=== PATIENT | female | born 1995 | race Caucasian/White ===

== ENCOUNTER → 2019-05-16 | Outpatient (REF) | payer BC | LOC: M LAB LCGH 12:37 | PROVIDERS: ATTEND Obstetrics & Gynecology | DX: Z12.4 Encounter for screening for malignant neoplasm of cervix (principal); R87.610 Atypical squamous cells of undetermined significance on cytologic smear of cervix (ASC-US) | CPT/HCPCS: 87624; G0123 ==

== ENCOUNTER → 2022-07-21 | Outpatient (CLI) | payer MEDICAID ==
[2022-07-21 15:34] LABS: HEMATOCRIT 41.4 % (36.0-47.0); HEMOGLOBIN 14.1 g/dl (12.0-15.5); MEAN CORPUSCULAR HEMOGLOBIN 30.3 pg (27.0-33.0); MEAN CORPUSCULAR HGB CONC 34.1 g/dl (32.0-36.5); MEAN CORPUSCULAR VOLUME 88.8 fl (80.0-96.0); PLATELET COUNT, AUTOMATED 277 10^3/uL (150-450); RED BLOOD COUNT 4.66 10^6/uL (4.00-5.40); WHITE BLOOD COUNT 14.4 10^3/uL (4.0-10.0)
[2022-07-21 16:33] LABS: HIV 1&2 SCREEN CENTAUR NEGATIVE (NEGATIVE)
[2022-07-21 17:15] LABS: GC DNA AMPLIFICATION NEGATIVE (NEGATIVE)
== END ==
LOC: M PLALAB 13:54
PROVIDERS: ATTEND Advanced Practice Midwife
DX: Z34.82 Encounter for supervision of other normal pregnancy, second trimester (principal)

== ENCOUNTER → 2022-08-18 | Outpatient (CLI) | payer MEDICAID ==
[2022-08-18 17:30] LABS: HEMATOCRIT 38.7 % (36.0-47.0); MEAN CORPUSCULAR HEMOGLOBIN 30.5 pg (27.0-33.0); MEAN CORPUSCULAR HGB CONC 33.6 g/dl (32.0-36.5); MEAN CORPUSCULAR VOLUME 90.8 fl (80.0-96.0); PLATELET COUNT, AUTOMATED 259 10^3/uL (150-450); RED BLOOD COUNT 4.26 10^6/uL (4.00-5.40); WHITE BLOOD COUNT 15.7 10^3/uL (4.0-10.0)
[2022-08-18 18:18] LABS: HEMOGLOBIN A1c 7.6 % (4.0-6.0)
[2022-08-18 18:53] LABS: HIV 1&2 SCREEN CENTAUR NEGATIVE (NEGATIVE)
[2022-08-18 19:35] LABS: GC DNA AMPLIFICATION NEGATIVE (NEGATIVE)
== END ==
LOC: M PLALAB 15:46
PROVIDERS: ATTEND Advanced Practice Midwife
DX: Z34.01 Encounter for supervision of normal first pregnancy, first trimester (principal); Z36.89 Encounter for other specified antenatal screening

== ENCOUNTER → 2022-08-19 | Outpatient (CLI) | payer MEDICAID ==
[2022-08-19 16:26] LABS: ALBUMIN 3.1 G/DL (3.2-5.2); ALKALINE PHOSPHATASE 69 U/L (46-116); ALT/SGPT 10 U/L (7.0-40); AST/SGOT 13 U/L (<34); BLOOD UREA NITROGEN 9 MG/DL (9-23); CALCIUM LEVEL 9.6 MG/DL (8.5-10.1); CARBON DIOXIDE LEVEL 24 MMOL/L (20-31); CHLORIDE LEVEL 103 MMOL/L (98-107); CREATININE FOR GFR 0.63 MG/DL (0.55-1.30); GLOMERULAR FILTRATION RATE > 60.0 (>60); GLUCOSE CHALLENGE TEST 1 HOUR 276 MG/DL (LESS THAN 140); GLUCOSE, FASTING 276 MG/DL (60-100); POTASSIUM SERUM 3.9 MMOL/L (3.5-5.1); SODIUM LEVEL 134 MMOL/L (136-145)
[2022-08-19 16:38] LABS: CREATININE,RANDOM URINE 90.4 MG/DL
[2022-08-19 19:02] LABS: BILIRUBIN,TOTAL 0.3 MG/DL (0.3-1.2); TOTAL PROTEIN 6.5 G/DL (5.7-8.2)
== END ==
LOC: M PLALAB 12:05
PROVIDERS: ATTEND Obstetrics & Gynecology
DX: Z34.92 Encounter for supervision of normal pregnancy, unspecified, second trimester (principal); Z86.39 Personal history of other endocrine, nutritional and metabolic disease

== ENCOUNTER → 2022-09-18 | Outpatient (CLI) | payer MEDICAID, OTHER ==
[2022-09-18 14:43] LABS: HEMOGLOBIN A1c 6.9 % (4.0-6.0)
== END ==
LOC: M PLALAB 11:53
PROVIDERS: ATTEND Advanced Practice Midwife
DX: O24.111 Pre-existing type 2 diabetes mellitus, in pregnancy, first trimester (principal); E11.9 Type 2 diabetes mellitus without complications; Z3A.00 Weeks of gestation of pregnancy not specified

== ENCOUNTER → 2022-09-28 | Outpatient (CLI) | payer MEDICAID, OTHER | LOC: M WHC 07:50 | PROVIDERS: ATTEND Obstetrics & Gynecology | DX: O32.1XX0 Maternal care for breech presentation, not applicable or unspecified (principal); Z36.89 Encounter for other specified antenatal screening; Z3A.21 21 weeks gestation of pregnancy ==

== ENCOUNTER → 2022-10-29 | Outpatient (CLI) | payer OTHER | LOC: M WHC 14:17 | PROVIDERS: ATTEND Obstetrics & Gynecology | DX: O24.112 Pre-existing type 2 diabetes mellitus, in pregnancy, second trimester (principal); Z3A.26 26 weeks gestation of pregnancy ==

== ENCOUNTER → 2022-11-13 | Outpatient (CLI) | payer MEDICARE, MEDICAID ==
[2022-11-13 10:51] LABS: HEMOGLOBIN 11.9 g/dl (12.0-15.5); MEAN CORPUSCULAR HEMOGLOBIN 31.2 pg (27.0-33.0); MEAN CORPUSCULAR HGB CONC 33.1 g/dl (32.0-36.5); MEAN CORPUSCULAR VOLUME 94.5 fl (80.0-96.0); PLATELET COUNT, AUTOMATED 223 10^3/uL (150-450); RED BLOOD COUNT 3.81 10^6/uL (4.00-5.40); WHITE BLOOD COUNT 14.7 10^3/uL (4.0-10.0)
[2022-11-13 11:27] LABS: CREATININE,RANDOM URINE 58.2 MG/DL
[2022-11-13 21:56] LABS: GC DNA AMPLIFICATION NEGATIVE (NEGATIVE)
== END ==
LOC: M PLALAB 07:16
PROVIDERS: ATTEND Obstetrics & Gynecology
DX: Z34.02 Encounter for supervision of normal first pregnancy, second trimester (principal)

== ENCOUNTER → 2022-11-14 | Outpatient (CLI) | payer OTHER | LOC: M EKG 12:23 | PROVIDERS: ATTEND Obstetrics & Gynecology | DX: O24.112 Pre-existing type 2 diabetes mellitus, in pregnancy, second trimester (principal) ==

== ENCOUNTER → 2022-12-25 | Outpatient (CLI) | payer OTHER | LOC: M WHC 09:28 | PROVIDERS: ATTEND Obstetrics & Gynecology | DX: O24.319 Unspecified pre-existing diabetes mellitus in pregnancy, unspecified trimester (principal) ==

== ENCOUNTER → 2023-01-01 | Outpatient (REF) | payer OTHER | LOC: M SFHCWAGY 16:49 | PROVIDERS: ATTEND Obstetrics & Gynecology | DX: O24.313 Unspecified pre-existing diabetes mellitus in pregnancy, third trimester (principal) ==

== ENCOUNTER → 2023-03-05 | Outpatient (CLI) | payer OTHER, BC ==
[~2023-03-05] MED LIST: ACET-683 PO; ADME100I SC; IBUP80TA PO; INSURSD SC; Insulin Human Nph SC; NOVOINJ13 SC; PRENTAB9 PO
[2023-03-05 14:43] LABS: HEMOGLOBIN A1c 5.4 % (4.0-6.0)
== END ==
LOC: M PLALAB 10:22
PROVIDERS: ATTEND Obstetrics & Gynecology
DX: Z39.2 Encounter for routine postpartum follow-up (principal); Z86.32 Personal history of gestational diabetes

== ENCOUNTER → 2025-02-21 | Outpatient (REF) | payer BC, OTHER ==
[~2025-02-21] MED LIST changes: +INSU100V19 SC; -INSURSD SC
== END ==
LOC: M PLALAB 15:58
PROVIDERS: ATTEND Advanced Practice Midwife
DX: Z53.9 Procedure and treatment not carried out, unspecified reason (principal)

== ENCOUNTER → 2025-02-28 | Outpatient (CLI) | payer BC, OTHER ==
[2025-02-28 17:57] LABS: PLATELET COUNT, AUTOMATED 230 10^3/uL (150-450)
[2025-02-28 18:19] LABS: ESTIMATED AVERAGE GLUCOSE 108.0 MG/DL (60-110)
[2025-02-28 18:30] LABS: FREE T4 0.99 NG/DL (0.89-1.76)
[2025-02-28 18:55] LABS: HIV 1&2 SCREEN NEGATIVE (NEGATIVE)
[2025-02-28 19:04] LABS: HEPATITIS C VIRUS ABY INDEX < 0.02 INDEX (<0.8)
[2025-02-28 21:09] LABS: Trichomonas vaginalis (AMP) NOT DETECTED (NEGATIVE)
[2025-02-28 21:33] LABS: GC DNA AMPLIFICATION NEGATIVE (NEGATIVE)
== END ==
LOC: M PLALAB 15:08
PROVIDERS: ATTEND Advanced Practice Midwife
DX: Z34.81 Encounter for supervision of other normal pregnancy, first trimester (principal)

== ENCOUNTER → 2025-02-28 | Outpatient (REF) | payer BC, OTHER | LOC: M PLALAB 15:20 | PROVIDERS: ATTEND Advanced Practice Midwife | DX: Z53.1 Procedure and treatment not carried out because of patient's decision for reasons of belief and group pressure (principal) ==

== ENCOUNTER → 2025-05-04 | Outpatient (CLI) | payer BC, OTHER | LOC: M WHC 12:58 | PROVIDERS: ATTEND Student in an Organized Health Care Education/Training Program | DX: Z34.80 Encounter for supervision of other normal pregnancy, unspecified trimester (principal) ==

== ENCOUNTER → 2025-06-05 | Outpatient (CLI) | payer BC, OTHER ==
[~2025-06-05] MED LIST changes: -INSU100V19 SC; +INSURSDRX SC
== END ==
LOC: M WHC 14:16
PROVIDERS: ATTEND Advanced Practice Midwife
DX: Z34.82 Encounter for supervision of other normal pregnancy, second trimester (principal)

== ENCOUNTER → 2025-06-13 | Outpatient (CLI) | payer BC, OTHER ==
[2025-06-13 13:51] LABS: PLATELET COUNT, AUTOMATED 239 10^3/uL (150-450)
[2025-06-13 13:59] LABS: FREE T4 0.85 NG/DL (0.89-1.76)
[2025-06-13 14:29] LABS: HIV 1&2 SCREEN NEGATIVE (NEGATIVE)
[2025-06-13 14:37] LABS: HEPATITIS C VIRUS ABY INDEX 0.02 INDEX (<0.8)
[2025-06-13 14:49] LABS: Trichomonas vaginalis (AMP) NOT DETECTED (NEGATIVE)
[2025-06-13 15:05] LABS: ESTIMATED AVERAGE GLUCOSE 105.0 MG/DL (60-110)
[2025-06-13 15:14] LABS: GC DNA AMPLIFICATION NEGATIVE (NEGATIVE)
== END ==
LOC: M PLALAB 09:53
PROVIDERS: ATTEND Advanced Practice Midwife
DX: O24.312 Unspecified pre-existing diabetes mellitus in pregnancy, second trimester (principal); Z3A.00 Weeks of gestation of pregnancy not specified